=== PATIENT | female | born 1995 | race Caucasian/White ===

== ENCOUNTER → 2017-02-03 21:55 | Outpatient (CLI) | payer MEDICAID ==
[2017-02-03 22:52] LABS: APPEARANCE CLEAR (CLEAR); BILIRUBIN NEGATIVE (NEGATIVE); COLOR YELLOW (YELLOW); GLUCOSE NEGATIVE (NEGATIVE); KETONE NEGATIVE (NEGATIVE); LEUKOCYTE ESTERASE NEGATIVE (NEGATIVE); NITRITE NEGATIVE (NEGATIVE); PROTEIN NEGATIVE (NEGATIVE); UROBILINOGEN NORMAL (NORMAL)
[2017-02-03 23:01] LABS: UDS - AMPHET NEGATIVE QUAL (NEGATIVE); UDS - BARB NEGATIVE QUAL (NEGATIVE); UDS - BENZO NEGATIVE QUAL (NEGATIVE); UDS - COCAINE NEGATIVE QUAL (NEGATIVE); UDS - METH NEGATIVE QUAL (NEGATIVE); UDS - OPIATE POSITIVE QUAL (NEGATIVE); UDS - PCP NEGATIVE QUAL (NEGATIVE); UDS - THC POSITIVE QUAL (NEGATIVE)
== END | disposition home or self-care (01) ==
LOC: D.LDO 21:55
PROVIDERS: Obstetrics & Gynecology
DX: O09.30 Supervision of pregnancy with insufficient antenatal care, unspecified trimester (principal); N89.8 Other specified noninflammatory disorders of vagina